=== PATIENT | female | born 1935 | race Asian ===

== ENCOUNTER 2017-06-22 11:41 | Emergency (ER) | payer MEDICARE, OTHER ==
[~2017-06-22] VITALS: Ht 147.3 cm; Wt 49.9 kg
[~2017-06-22 11:41] MED LIST: ACET-7740 PO; AMLO-26 PO; BENZ1TAB24 PO; FERR-193 PO; HYDR12.5 PO; OMEP20TC24 PO; POTA20TE62 PO; RISP2TAB29 PO; TRAZ-286 PO; [UNRECOGNIZED DRUG - CODE] PO; [UNRECOGNIZED DRUG - CODE] PO
[2017-06-22 11:52] VITALS: BP 147/62
--- NOTE | 2017-06-22 11:58 | NUR ---
Patient ambulated to bed 06.
--- NOTE | 2017-06-22 12:06 | NUR ---
Dr. Pan evaluating patient at bedside.
--- NOTE | 2017-06-22 12:07 | NUR ---
82 F BIB DAUGHTER WITH C/O LEFT SHOULDER PAIN X1 WEEK; ACCORDING TO DAUGHTER, PT HAS HX OF FALLS; PT DENIES ANY RECENT FALLS; NO INJURY OR INJURY NOTED TO L ARM; CMS INTACT TO BL ARMS; PT IS AOX3 WITH STEADY GAIT; ACCORDING TO DAUGHTER, SHE IS BEING EVAULATED FOR DEMENITIA BUT HAS NOT BEEN DIAGNOSED; RR ARE EVEN AND UNLABORED; MD ROBERSON BY BEDSIDE EXAMINING PT; PATIENT STATES PAIN "SHARP" 10/10 TO LEFT SHOULDER THAT IS NONRADIATING AT THIS TIME; VSS; PATIENT POSITIONED FOR COMFORT; HOB ELEVATED; BEDRAILS UP X2
--- NOTE | 2017-06-22 12:36 | NUR ---
XRAY BY BEDSIDE
[2017-06-22 13:48] VITALS: BP 147/62
--- NOTE | 2017-06-22 13:51 | NUR ---
Patient discharged with v/s stable. Written and verbal after care instructions given and explained. Patient alert, oriented and verbalized understanding of instructions. Ambulatory with to car. All questions addressed prior to discharge. ID band removed. Patient advised to follow up with PMD. Rx of TYLENOL given. Patient educated on indication of medication including possible reaction and side effects. Opportunity to ask questions provided and answered.
== END 2017-06-22 13:51 | disposition home or self-care (01) ==
LOC: MED 11:41
DX: M19.012 Primary osteoarthritis, left shoulder (principal); I10 Essential (primary) hypertension; Z79.899 Other long term (current) drug therapy
CPT/HCPCS: 73030; 99284

== ENCOUNTER 2018-04-15 10:34 | Inpatient (IN) | payer OTHER, MEDICARE ==
[~2018-04-15] VITALS: Ht 142.2 cm; Wt 60.8 kg
[~2018-04-15 10:34] MED LIST changes: +BENZ1TAB PO; -BENZ1TAB24 PO; +FERR-15 PO; -FERR-193 PO; +OMEP20TC12 PO; -OMEP20TC24 PO; +[UNRECOGNIZED DRUG - CODE] PO; -[UNRECOGNIZED DRUG - CODE] PO
[2018-04-15 10:55] VITALS: BP 92/74
--- NOTE | 2018-04-15 11:02 | NUR ---
PT TAKEN BY WHEEL CHAIR TO ER BED 02
--- NOTE | 2018-04-15 11:04 | NUR ---
82Y/F BIB DAUGHTER C/O BRIGHT RED BLOOD STOOLS WITH GENERALIZED ABD PAIN X 2 DAYS. DENIES VOMITTING, FEVERS. SKIN W/D/I. RESP EVEN AND UNALABORED, IN NAD. AAOX4 WITH EVEN AND STEADY GAIT; PATIENT STATES PAIN OF 5/10 AT THIS TIME; VSS; PATIENT POSITIONED FOR COMFORT; HOB ELEVATED; BEDRAILS UP X1; BED DOWN. ER MD MADE AWARE OF PT STATUS.
[2018-04-15] MEDS ORDERED: NACL 0.9% 1,000 ML IV ONE (11:25)
--- NOTE | 2018-04-15 11:25 | NUR ---
Patient being evaluated by physician at bedside.
--- NOTE | 2018-04-15 11:40 | NUR ---
LAB AT BEDSIDE
--- NOTE | 2018-04-15 11:55 | NUR ---
RAD AT BEDSIDE
[2018-04-15 11:58] LABS: BASOPHILS % (AUTO) 0.5 % (0.0-2.0); EOSINOPHILS % (AUTO) 0.2 % (0.0-4.0); HEMATOCRIT 28.1 % (36-48); HEMOGLOBIN 9.5 g/dL (12.0-16.0); LYMPHOCYTES # (AUTO) 0.8 K/uL (2.5-16.5); LYMPHOCYTES % (AUTO) 12.4 % (20.5-51.1); MEAN CORPUSCULAR HEMOGLOBIN 30 pg (27-31); MEAN CORPUSCULAR HGB CONC 34 g/dL (33-37); MEAN CORPUSCULAR VOLUME 87.9 fL (80-94); MONOCYTES # (AUTO) 0.4 K/uL (0.8-1.0); MONOCYTES % (AUTO) 5.5 % (1.7-9.3); NEUTROPHILS # (AUTO) 5.4 K/uL (1.8-7.7); NEUTROPHILS % (AUTO) 81.4 % (42.2-75.2); PLATELET COUNT (AUTO) 203 K/uL (140-450); RED BLOOD CELL COUNT(AUTO) 3.19 MIL/uL (4.20-5.40); WHITE BLOOD COUNT (AUTO) 6.6 K/uL (4.8-10.8)
[2018-04-15 12:24] LABS: ANION GAP 6.7 (8-16); CARBON DIOXIDE 26.5 mmol/L (21-32); CHLORIDE 96 mmol/L (98-107); CREATININE 0.7 mg/dL (0.6-1.3); GLUCOSE 133 mg/dL (74-106); POTASSIUM 4.2 mmol/L (3.5-5.1); PROTHROMBIN TIME 10.4 secs (10.8-13.4); SODIUM SERUM 125 mmol/L (136-145); UREA NITROGEN, BLOOD 24 mg/dL (7-18)
[2018-04-15 12:31] LABS: ALBUMIN 3.3 g/dL (3.4-5.0); ASPARTATE AMINOTRANSFERASE 12 U/L (15-37); TOTAL BILIRUBIN 0.3 mg/dL (0.0-1.0)
[2018-04-15 12:39] LABS: APPEARANCE,URINE CLEAR (CLEAR); BILIRUBIN,URINE NEGATIVE (NEGATIVE); COLOR,URINE YELLOW (YELLOW); LEUKOCYTE ESTERASE ,URINE NEGATIVE (NEGATIVE); NITRITE, URINE NEGATIVE (NEGATIVE); PH,URINE 6.5 (5.0-9.0); UGLUCOSE NEGATIVE (NEGATIVE)
[2018-04-15 12:45] LABS: BLOOD, URINE TRACE (NEGATIVE)
[2018-04-15 12:47] LABS: RBC,URINE 0-5 (RARE) /HPF (0-5); WBC,URINE 0-5 (RARE) /HPF (0-5)
--- NOTE | 2018-04-15 12:50 | NUR ---
PT TAKEN TO CT
--- NOTE | 2018-04-15 12:58 | NUR ---
Danilo cisneros in [facility], [place] - 04/15/18 at 1300 by NICK PT TAKEN TO CT
--- NOTE | 2018-04-15 12:59 | NUR ---
PT BACK FROM CT
[2018-04-15] MEDS ORDERED: traZODone 50 MG TAB PO PRN (14:00)
[2018-04-15] MEDS ORDERED: ACETAMINOPHEN 325 MG TAB PO PRN (14:00)
[2018-04-15] MEDS ORDERED: MECLIZINE 25 MG TAB PO PRN (14:00)
[2018-04-15] MEDS ORDERED: HYDROcodone/APAP 5/325 MG 1 TAB TAB PO PRN (14:00)
[2018-04-15] MEDS ORDERED: ONDANSETRON 4 MG/2 ML VIAL IVP PRN (14:00)
[2018-04-15] MEDS ORDERED: MORPHINE SULFATE 2 MG/ML SYR IVP PRN (14:00)
[2018-04-15 14:30] VITALS: BP 135/76
--- NOTE | 2018-04-15 14:40 | NUR ---
PATIENT ARRIVED ON FLOOR VIA GURNEY, PATIENT AMBULATED TO BED ON STEADY GAIT WITH HER CANE. REPORT RECEIVED FROM SALES ASSISTANT ENTERTAINMENT AND MEDIA NURSE AT BEDSIDE FOR CONTINUITY OF CARE. PATIENT AOX3, TAGALOG SPEAKING WITH SOME TAJIK, CONFUSED WITH HX OF DEMENTIAL. DX OF RECTAL BLEEDING AND HYPONATREMIA. LUNG SOUNDS CLEAR, BOWEL SOUNDS ACTIVE. MRSA SCREENING DONE. INITIAL ASSESSMENT DONE. IV SITE INTACT, PATENT, AND ASYMPTOMATIC. ORIENTATED PATIENT AND HER DAUGHTER ALISSA REDD TO FLOOR, CALL LIGHT, BATHROOM, AND TV. SAFETY PRECAUTION IN PLACE, CALL LIGHT WITHIN REACH. WILL CONTINUE TO MONITOR PATIENT.
--- NOTE | 2018-04-15 14:41 | NUR ---
Patient will be admitted to care of DR. TELLEZ. Admited to TELE FLOOR. Will go to room 112-A. Belongings list completed. Report to JENNIFER FERREIRA.
[2018-04-15 14:52] LABS: HEMATOCRIT 29.7 % (36-48)
--- NOTE | 2018-04-15 15:10 | NUR ---
PATIENT AMBULATED TO BATHROOM ON STEADY GAIT WITH CANE WITH RN STANDBY ASSIST. PATIENT VOIDED. DAUGHTER ZHANNA AT BEDSIDE. PATIENT REQUESTED FOOD. PATIENT ON CLEAR LIQUID DIET, JELLO AND JUICE GIVEN. PATIENT APPRECIATIVE. SAFETY PRECAUTION IN PLACE, CALL LIGHT WITHIN REACH, WILL CONTINUE TO MONITOR PATIENT.
[2018-04-15] MEDS: NACL 0.9% 1,000 ML IV SCH (15:30)
[2018-04-15 16:00] VITALS: BP 139/100
--- NOTE | 2018-04-15 17:35 | NUR ---
PATIENT AMBULATED TO BATHROOM ON STEADY GAIT WITH CANE WITH DISTRICT OPERATIONS MANAGER STANDBY ASSIST. PATIENT VOIDED. PATIENT NOW SITTING ON SIDE OF BED EATING DINNER. NO SIGNS OF DISTRESS OR SOB NOTED ON ROOM AIR. PATIENT DENIES PAIN. SAFETY PRECAUTION IN PLACE, CALL LIGHT WITHIN REACH, WILL CONTINUE TO MONITOR PATIENT.
--- NOTE | 2018-04-15 18:30 | NUR ---
PATIENT MOVED FROM ROOM 112A TO 107A FOR MORE CLOSER MONITORING. PATIENT TOLERATED MOVE WELL.
--- NOTE | 2018-04-15 19:24 | NUR ---
REPORT GIVEN TO CAPONIZER NURSE AT BEDSIDE FOR CONTINUITY OF CARE. PATIENT IN STABLE CONDITION. DAUGHTER ZHANNA AT BEDSIDE.
--- NOTE | 2018-04-15 19:25 | NUR ---
PATIENT REPORT RECEIVED FROM MORNING NURSE AT BEDSIDE. PATIENT IS AWAKE, ALERT AND ORIENTED. NO SIGNS AND SYMPTOMS OF DISTRESS NOTED. NO COMPLAINTS OF PAIN AT THIS TIME. IV SITE NOTED ON LEFT HAND, IV FLUID INFUSING WELL. PLAN OF CARE DISCUSSED WITH PATIENT. PATIENT VERBALIZED UNDERSTANDING. BED IN LOWEST POSITION, SIDE RAILS UP AND CALL LIGHT WITHIN REACH. WILL CONTINUE TO MONITOR
--- NOTE | 2018-04-15 19:40 | NUR ---
DAUGHTER ALISSA REDD PRESENT AT BEDSIDE. EXPLAINED PLAN OF CARE TO DAUGHTER. DAUGHTER VERBALIZED UNDERSTANDING.
[2018-04-15 20:00] VITALS: BP 154/64
[2018-04-15] MEDS: PANTOPRAZOLE 40 MG INJ VIAL IVP SCH (20:45)
[2018-04-15] MEDS ORDERED: risperiDONE 1 MG TAB PO SCH (21:00)
[2018-04-15] MEDS ORDERED: BENZTROPINE 1 MG TAB PO SCH (21:00)
--- NOTE | 2018-04-15 21:00 | NUR ---
MEDICATION EDUCATION GIVEN. PATIENT VERBALIZED UNDERSTANDING. MEDICATION ADMINISTERED ORDERED. PATIENT TOLERATED WELL. WILL CONTINUE TO MONITOR
--- NOTE | 2018-04-15 22:00 | NUR ---
PATIENT AMBULATED TO BEDSIDE COMMODE AND VOIDED. PERICARE DONE. PATIENT ASSISTED BACK TO BED. PATIENT TOLERATED WELL. WILL CONTINUE TO MONITOR
[2018-04-16] VITALS: BP 153/62
--- NOTE | 2018-04-16 01:00 | NUR ---
CHECKED ON PATIENT. PATIENT RESTING COMFORTABLY IN BED. NO SIGNS AND SYMPTOMS OF DISTRESS NOTED. BREATHING EVEN AND UNLABORED. WILL CONTINUE TO MONITOR
[2018-04-16 04:00] VITALS: BP 148/72
[2018-04-16] MEDS: NACL 0.9% 1,000 ML IV SCH ×2 (04:11→16:38)
--- NOTE | 2018-04-16 05:45 | NUR ---
DR. TOMLINSON, GI CONSULT CALLED. UPDATED HIM ON PATIENTS CONDITION. WILL COME IN LATER TO SEE PATIENT
[2018-04-16 06:03] LABS: BASOPHILS # (AUTO) 0.1 K/uL (0.00-0.22); BASOPHILS % (AUTO) 1.3 % (0.0-2.0); EOSINOPHILS # (AUTO) 0.2 K/uL (0-0.4); EOSINOPHILS % (AUTO) 4.1 % (0.0-4.0); HEMATOCRIT 26.2 % (36-48); HEMOGLOBIN 9.1 g/dL (12.0-16.0); LYMPHOCYTES # (AUTO) 1.1 K/uL (2.5-16.5); LYMPHOCYTES % (AUTO) 24.3 % (20.5-51.1); MEAN CORPUSCULAR HEMOGLOBIN 31 pg (27-31); MEAN CORPUSCULAR HGB CONC 35 g/dL (33-37); MEAN CORPUSCULAR VOLUME 87.6 fL (80-94); MONOCYTES # (AUTO) 0.5 K/uL (0.8-1.0); MONOCYTES % (AUTO) 10.3 % (1.7-9.3); NEUTROPHILS # (AUTO) 2.6 K/uL (1.8-7.7); PLATELET COUNT (AUTO) 198 K/uL (140-450); RED BLOOD CELL COUNT(AUTO) 2.99 MIL/uL (4.20-5.40); RED CELL DISTRIBUTION WIDTH 13.1 % (11.6-13.7); WHITE BLOOD COUNT (AUTO) 4.4 K/uL (4.8-10.8)
[2018-04-16 07:02] LABS: ALBUMIN 3.3 g/dL (3.4-5.0); ANION GAP 8.1 (8-16); ASPARTATE AMINOTRANSFERASE 11 U/L (15-37); CARBON DIOXIDE 30.1 mmol/L (21-32); CHLORIDE 103 mmol/L (98-107); CREATININE 0.7 mg/dL (0.6-1.3); GLUCOSE 109 mg/dL (74-106); MAGNESIUM 1.8 mg/dL (1.8-2.4); POTASSIUM 3.2 mmol/L (3.5-5.1); SODIUM SERUM 138 mmol/L (136-145); TOTAL BILIRUBIN 0.6 mg/dL (0.0-1.0); UREA NITROGEN, BLOOD 12 mg/dL (7-18)
--- NOTE | 2018-04-16 07:19 | NUR ---
PATIENT REPORT GIVEN TO MORNING NURSE AT BEDSIDE FOR CONTINUITY OF CARE. PATIENT IS IN STABLE CONDITION
--- NOTE | 2018-04-16 07:30 | NUR ---
RECEIVED PT REPORT FROM DREDGE PIPE INSTALLER NURSE AT BEDSIDE. PT IS AWAKE, ALERT AND ORIENTEDX3. NO S/S OF DISTRESS NOTED. DENIES PAIN. IV SITE NOTED ON LEFT WRIST,22G, ASYMPTOMATIC, IV FLUID INFUSING WELL. PLAN OF CARE DISCUSSED WITH PATIENT. PATIENT VERBALIZED UNDERSTANDING. BED IN LOWEST POSITION, BED ALARM ON. CALL LIGHT WITHIN REACH. WILL CONTINUE TO MONITOR
[2018-04-16 08:00] VITALS: BP 122/56
--- NOTE | 2018-04-16 08:44 | NUR ---
PATIENT HAS BEEN SCREENED AND CATEGORIZED MODERATE NUTRITION RISK. PATIENT WILL BE SEEN WITHIN 3-5 DAYS OF ADMISSION. 04/18/18 04/20/[address]
[2018-04-16] MEDS: PANTOPRAZOLE 40 MG INJ VIAL IVP SCH (08:51)
[2018-04-16] MEDS ORDERED: POTASSIUM CHLORIDE 10 MEQ TABER PO SCH (09:30)
--- NOTE | 2018-04-16 09:45 | NUR ---
CM NOTE INITIAL REVIEW FAXED TO [facility] [phone] [place] PH# [phone], [place] PH# [phone]
--- NOTE | 2018-04-16 10:59 | NUR ---
CALLED [phone], PT'S DAUGHTER, TO NOTIFY HER ABOUT DC ORDER. HOWEVER, NO ONE IS ANSWERING AND NO OPTION TO LEAVE MESSAGE.
--- NOTE | 2018-04-16 11:50 | NUR ---
CALLED [phone], PT'S DAUGHTER, TO NOTIFY HER ABOUT DC ORDER. HOWEVER, NO ONE IS ANSWERING AND NO OPTION TO LEAVE MESSAGE.
[2018-04-16 12:00] VITALS: BP 138/90
--- NOTE | 2018-04-16 13:17 | NUR ---
Business Services Manager Note: I me with patient at bedside. Per patient, she lives with her daughter Trinidad and plans to return there upon discharge. She reported Trinidad assist her with adls and transportation. I called Trinidad to confirm and obtain additional information about patient, no answer, no answering machine, unable to leave message. I left my business card on table in room in case Trinidad visits patient.
--- NOTE | 2018-04-16 13:55 | NUR ---
SPOKE WITH DR TELLEZ, BETI TO CANCEL [facility] [id number] 04/16, PT OK TO BE DC'D
[2018-04-16 16:00] VITALS: BP 129/51
--- NOTE | 2018-04-16 18:00 | NUR ---
CALLED [phone], PT'S DAUGHTER, TO NOTIFY HER ABOUT DC ORDER. HOWEVER, NO ONE IS ANSWERING AND NO OPTION TO LEAVE MESSAGE.
--- NOTE | 2018-04-16 18:08 | NUR ---
SPOKE WITH LAI PT'S SON WHO IS ALSO WORKING IN THE LAB. MADE HIM AWARE OF THE DC ORDER. HE SAID HIS SISTER IS COMING TO BOXER OPERATOR LENNIE.
--- NOTE | 2018-04-16 19:35 | NUR ---
PT DISCHARGED PER MD ORDER. PT'S DAUGHTER IS HERE TO GED PREPARATION TEACHER PT. DISCHARGE INSTRUCTIONS AND MED TEACHING GIVEN TO PT AND HER DAUGHTER, VERBALIZED UNDERSTANDING. IV DC'D, TIP INTACT, PRESSURE APPLIED. TELE REMOVED, AND WRIST BACN REMOVED. PT LEFT IN STABLE CONDITION AND WITH ALL HER BELONGING.
--- NOTE | 2018-04-16 19:40 | NUR ---
WHEELED PT TO LOBBY.
== END 2018-04-16 19:40 | disposition home or self-care (01) | DRG 253 ==
LOC: MED 10:34 → MTU 14:11
PROVIDERS: ADMIT Internal Medicine; ATTEND Internal Medicine
DX: K62.5 Hemorrhage of anus and rectum (principal); E87.1 Hypo-osmolality and hyponatremia; F03.90 Unspecified dementia, unspecified severity, without behavioral disturbance, psychotic disturbance, mood disturbance, and anxiety; M80.88XA Other osteoporosis with current pathological fracture, vertebra(e), initial encounter for fracture; D64.9 Anemia, unspecified; E87.6 Hypokalemia; I10 Essential (primary) hypertension; N28.89 Other specified disorders of kidney and ureter; F32.9 Major depressive disorder, single episode, unspecified; F20.0 Paranoid schizophrenia; M19.90 Unspecified osteoarthritis, unspecified site; K57.90 Diverticulosis of intestine, part unspecified, without perforation or abscess without bleeding
CPT/HCPCS: 36415; 71045; 73030; 76770; 80053; 81001; 83605; 83735; 83880; 83930; 84484; 85018; 85025; 85610; 85730; 87040; 87081; 87086; 93005; 96360; 99285; C9113; J7030; Q0092

== ENCOUNTER 2018-12-24 17:27 | Outpatient (CLI) | payer MEDICARE, OTHER ==
[~2018-12-24 17:27] MED LIST changes: -HYDR12.5 PO; +MECL-370 PO; -POTA20TE62 PO; -TRAZ-286 PO; -[UNRECOGNIZED DRUG - CODE] PO
== END 2018-12-24 20:25 | disposition home or self-care (01) ==
LOC: MRD 17:27
PROVIDERS: ATTEND Internal Medicine Geriatric Medicine
DX: S52.501D Unspecified fracture of the lower end of right radius, subsequent encounter for closed fracture with routine healing (principal); S52.611D Displaced fracture of right ulna styloid process, subsequent encounter for closed fracture with routine healing; I10 Essential (primary) hypertension; X58.XXXD Exposure to other specified factors, subsequent encounter
CPT/HCPCS: 73110

== ENCOUNTER 2019-11-17 09:57 | Emergency (ER) | payer MEDICARE, OTHER ==
[~2019-11-17] VITALS: Ht 152.4 cm; Wt 59.0 kg
[2019-11-17 10:12] VITALS: BP 164/80
--- NOTE | 2019-11-17 10:54 | NUR ---
DR. MOLINA AT BEDSIDE EVALUATING PATIENT.
[2019-11-17 11:48] LABS: BASOPHILS % (AUTO) 0.6 % (0.0-2.0); EOSINOPHILS # (AUTO) 0.1 K/uL (0-0.4); EOSINOPHILS % (AUTO) 1.6 % (0.0-4.0); HEMATOCRIT 39.2 % (36-48); LYMPHOCYTES # (AUTO) 1.2 K/uL (2.5-16.5); LYMPHOCYTES % (AUTO) 19.9 % (20.5-51.1); MEAN CORPUSCULAR HEMOGLOBIN 31 pg (27-31); MEAN CORPUSCULAR HGB CONC 33 g/dL (33-37); MEAN CORPUSCULAR VOLUME 92.6 fL (80-94); MONOCYTES # (AUTO) 0.6 K/uL (0.8-1.0); MONOCYTES % (AUTO) 10.2 % (1.7-9.3); NEUTROPHILS # (AUTO) 4.2 K/uL (1.8-7.7); NEUTROPHILS % (AUTO) 67.7 % (42.2-75.2); PLATELET COUNT (AUTO) 234 K/uL (140-450); RED BLOOD CELL COUNT(AUTO) 4.24 MIL/uL (4.20-5.40); RED CELL DISTRIBUTION WIDTH 12.5 % (11.6-13.7); WHITE BLOOD COUNT (AUTO) 6.2 K/uL (4.8-10.8)
[2019-11-17 11:56] LABS: APPEARANCE,URINE CLEAR (CLEAR); BILIRUBIN,URINE NEGATIVE (NEGATIVE); BLOOD, URINE 1+ (NEGATIVE); COLOR,URINE YELLOW (YELLOW); LEUKOCYTE ESTERASE ,URINE 1+ (NEGATIVE); NITRITE, URINE POSITIVE (NEGATIVE); PH,URINE 6.5 (5.0-9.0); UGLUCOSE NEGATIVE (NEGATIVE)
--- NOTE | 2019-11-17 12:06 | NUR ---
Stable Awaiting lab results
[2019-11-17 12:13] LABS: ALBUMIN 3.7 g/dL (3.4-5.0); ASPARTATE AMINOTRANSFERASE 15 U/L (15-37); CARBON DIOXIDE 30.8 mmol/L (21-32); CHLORIDE 102 mmol/L (98-107); CREATININE 0.7 mg/dL (0.6-1.3); GLUCOSE 91 mg/dL (74-106); POTASSIUM 3.8 mmol/L (3.5-5.1); SODIUM SERUM 139 mmol/L (136-145); TOTAL BILIRUBIN 0.3 mg/dL (0.0-1.0); UREA NITROGEN, BLOOD 18 mg/dL (7-18)
[2019-11-17 13:33] VITALS: BP 151/77
--- NOTE | 2019-11-17 13:36 | NUR ---
Stable VSS No pain MD has reassessed and Dc'd home. To exit
== END 2019-11-17 13:36 | disposition home or self-care (01) ==
LOC: MED 09:57
DX: B34.9 Viral infection, unspecified (principal); N39.0 Urinary tract infection, site not specified; I11.0 Hypertensive heart disease with heart failure; F03.90 Unspecified dementia, unspecified severity, without behavioral disturbance, psychotic disturbance, mood disturbance, and anxiety; Z79.899 Other long term (current) drug therapy
CPT/HCPCS: 36415; 71045; 80053; 81001; 83605; 83880; 84484; 85025; 87040; 87086; 87186; 87804; 93005; 99284; Q0092